=== PATIENT | male | born 1970 ===

== ENCOUNTER 2018-10-19 17:28 | Emergency (ER) | payer OTHER ==
[2018-10-19 17:54] VITALS: BP 164/74; PULSE 115; RESP 19; TEMP 99.3; O2SAT 95
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
== END 2018-10-19 18:31 | disposition home or self-care (01) ==
LOC: C.ER 17:28
DX: S69.91XA Unspecified injury of right wrist, hand and finger(s), initial encounter (principal); V47.6XXA Car passenger injured in collision with fixed or stationary object in traffic accident, initial encounter